=== PATIENT | female | born 1960 | race Native Hawaiian/Other Pacific Islander ===

== ENCOUNTER 2022-02-22 09:38 | Outpatient (CLI) | payer OTHER | END 2022-02-22 21:49 | disposition home or self-care (01) | LOC: MAMMO 09:38 | PROVIDERS: ATTEND Nurse Practitioner Family | DX: N63.10 Unspecified lump in the right breast, unspecified quadrant (principal); N64.59 Other signs and symptoms in breast | CPT/HCPCS: G0279 ==